=== PATIENT | female | born 1955 | race Caucasian/White ===

== ENCOUNTER 2018-06-09 07:47 | Outpatient (CLI) | payer MEDICARE, OTHER ==
[2018-06-09 11:42] LABS: BASOPHILS % (AUTO) 0.7 %; EOSINOPHILS # (AUTO) 0.1 10^3/uL (0.0-0.7); EOSINOPHILS % (AUTO) 2.4 %; LYMPHOCYTES # (AUTO) 1.5 10^3/uL (1.5-3.5); LYMPHOCYTES % (AUTO) 35.2 %; MEAN CORPUSCULAR HEMOGLOBIN 30.9 pg (27.0-31.0); MEAN CORPUSCULAR HGB CONC 33.7 g/dL (32.0-36.0); MEAN CORPUSCULAR VOLUME 91.7 fL (81.0-99.0); MEAN PLATELET VOLUME 9.1 fL (7.9-10.8); MONOCYTES # (AUTO) 0.3 10^3/uL (0.0-1.0); MONOCYTES % (AUTO) 7.1 %; NEUTROPHILS # (AUTO) 2.3 10^3/uL (1.5-6.6); NEUTROPHILS % (AUTO) 54.6 %; PLT - PLATELET COUNT 182 10^3/uL (130-450); RED BLOOD COUNT 4.54 10^6/uL (4.20-5.40); RED CELL DISTRIBUTION WIDTH 14.1 % (12.0-15.0); WHITE BLOOD COUNT 4.2 x10^3/uL (4.8-10.8)
[2018-06-09 11:59] LABS: ALBUMIN 4.3 g/dL (3.2-5.5); ALBUMIN/GLOBULIN RATIO 1.4 (1.0-2.2); ALKALINE PHOSPHATASE 51 IU/L (42-121); ALT ALANINE AMINOTRANSFERASE 13 IU/L (10-60); AST ASPARTATE AMINOTRANSFERASE 19 IU/L (10-42); BUN - BLOOD UREA NITROGEN 14 mg/dL (6-20); CALCIUM 9.3 mg/dL (8.5-10.3); CARBON DIOXIDE - CO2 31 mmol/L (21-32); CHLORIDE 103 mmol/L (101-111); CHOL/HDL RATIO 4.3 (<4.4); CHOLESTEROL 268 mg/dL; CREATININE 0.7 mg/dL (0.4-1.0); GFR - MDRD 84 (>89); GLUCOSE 87 mg/dL (70-100); HDL CHOLESTEROL 62 mg/dL; LDL CHOLESTEROL,CALCULATED 183 mg/dL; SODIUM 137 mmol/L (135-145); TOTAL PROTEIN 7.4 g/dL (6.7-8.2); VLDL CHOLESTEROL 23 mg/dL
[2018-06-10 12:16] LABS: HEPATITIS C ANTIBODY NON-REACTIVE (NON-REACTIVE)
== END 2018-06-09 07:48 | disposition home or self-care (01) ==
LOC: LAB.F 07:47
PROVIDERS: ATTEND Internal Medicine
DX: Z00.8 Encounter for other general examination (principal); Z72.89 Other problems related to lifestyle; Z13.6 Encounter for screening for cardiovascular disorders; M19.90 Unspecified osteoarthritis, unspecified site
CPT/HCPCS: 36415; 80053; 80061; 83721; 85025; 86803

== ENCOUNTER 2018-07-11 15:23 | Outpatient (CLI) | payer MEDICARE, OTHER ==
--- NOTE | 2018-07-26 14:09 | Mammography Report ---
Reason: SCREENING MAMMOGRAM Procedure Date: 07/11/2018 Accession Number: [id number] / [id number] Procedure: NYDIA - Screening Mammo Dig Bilat CPT Code: FULL RESULT: EXAM: Screening Mammo Dig Bilat DATE: 07/11/2018 3:53 PM CLINICAL HISTORY: 63-year-old female with history of lump removal from the right breast, pathology results on this are unclear. TECHNIQUE: Bilateral CC and MLO views were obtained. COMPARISON: 08/16/2015, 10/09/2013, 10/06/2012, 04/14/2011. FINDINGS: The breasts demonstrate heterogeneously dense fibroglandular parenchyma bilaterally. No suspicious masses, clustered microcalcifications, or regions of architectural distortion are identified. IMPRESSION: Benign findings RECOMMENDATION: Routine annual screening unless otherwise clinically indicated. BIRADS CATEGORY 2: Benign findings STANDARD QUALIFYING STATEMENTS: 1. This examination was not reviewed with the aid of Computer-Aided Detection (CAD). 2. A negative or benign imaging report should not delay biopsy if clinically suspicious findings are present. Consider surgical consultation if warrented. More than 5% of cancers are not identified by imaging. 3. Dense breasts may obscure an underlying neoplasm. 4. This examination was reviewed without the aid of 3D breast imaging (tomosynthesis).
== END 2018-07-11 15:24 | disposition home or self-care (01) ==
LOC: DI 15:23
PROVIDERS: ATTEND Internal Medicine
DX: Z12.31 Encounter for screening mammogram for malignant neoplasm of breast (principal)
CPT/HCPCS: 77067

== ENCOUNTER 2018-07-25 08:12 | Outpatient (CLI) | payer MEDICARE, OTHER ==
--- NOTE | 2018-07-25 15:30 | DEXA Report ---
Reason: POSTMENOPAUSAL Procedure Date: 07/25/2018 Accession Number: [id number] / [id number] Procedure: DEX - Dexa Spine and/or Hip CPT Code: FULL RESULT: EXAM: Dexa Spine and/or Hip DATE: 07/25/2018 8:42 AM CLINICAL HISTORY: POSTMENOPAUSAL TECHNIQUE: Dual energy x-ray absorptiometry (DXA) was performed on a [employer] System. Regions measured are the AP Spine, femoral neck, and if needed forearm. COMPARISON: None. In accordance with the International Society for Clinical Densitometry (ISCD) guidelines, data from previous exams may be reanalyzed using current recommendations and techniques. This is done to allow a more accurate basis for comparison with the current study. FINDINGS: The data for the lumbar spine is as follows: BMD (g/cm/cm) T-SCORE Z-SCORE REGION L1 0.926 -1.7 -0.2 L2 0.958 -2.0 -0.5 L3 1.093 -0.9 0.6 L4 1.065 -1.1 0.4 TOTAL 1.022 -1.3 0.2 NOTE: All evaluable vertebrae are used for classification The data for the hip is as follows: BMD (g/cm/cm) T-SCORE Z-SCORE REGION Neck 0.798 -1.7 -0.3 TOTAL 0.881 -1.0 0.1 NOTE: The femoral neck or total proximal femur, whichever is lowest, is used for classification. IMPRESSION: THE WHO CLASSIFICATION BASED ON THE INTERNATIONAL REFERENCE STANDARD IS OSTEOPENIA. THE FRACTURE RISK IS INCREASED. RECOMMENDATION: Patients with diagnosis of osteoporosis or osteopenia should have regular bone mineral density assessment. For those eligible for Medicare, routine testing is allowed once every 2 years. Testing frequency can be increased for patients who have rapidly progressing disease or for those who are receiving medical therapy to restore bone mass. COMMENT: World Health Organization (WHO) definitions for osteoporosis and osteopenia: NORMAL BMD: T-score at -1.0 or higher, fracture risk is low OSTEOPENIA BMD: T-score between -1.0 and -2.5, fracture risk is increased. OSTEOPOROSIS BMD: T-score at -2.5 or lower, fracture risk is high. National Osteoporosis Foundation recommends: 1. Obtain adequate dietary calcium (at least 1200 mg per day) and vitamin D (400-800 international units per day). 2. Participate, as appropriate, in regular weightbearing and muscle-strengthening exercise. 3. Avoid tobacco use and reduce alcohol and caffeine intake. 4. For more detailed information see the website at www.NOF.org.
== END 2018-07-25 08:13 | disposition home or self-care (01) ==
LOC: DI 08:12
PROVIDERS: ATTEND Internal Medicine
DX: Z00.8 Encounter for other general examination (principal); M85.89 Other specified disorders of bone density and structure, multiple sites; Z78.0 Asymptomatic menopausal state
CPT/HCPCS: 77080

== ENCOUNTER 2020-06-12 07:41 | Outpatient (CLI) | payer MEDICARE, OTHER ==
[2020-06-12 11:44] LABS: BASOPHILS % (AUTO) 0.8 %; EOSINOPHILS # (AUTO) 0.1 10^3/uL (0.0-0.7); EOSINOPHILS % (AUTO) 3.1 %; HGB - HEMOGLOBIN 12.8 g/dL (12.0-16.0); LYMPHOCYTES # (AUTO) 1.4 10^3/uL (1.5-3.5); LYMPHOCYTES % (AUTO) 34.4 %; MEAN CORPUSCULAR HEMOGLOBIN 29.9 pg (27.0-31.0); MEAN CORPUSCULAR HGB CONC 31.2 g/dL (32.0-36.0); MEAN CORPUSCULAR VOLUME 95.8 fL (81.0-99.0); MONOCYTES # (AUTO) 0.4 10^3/uL (0.0-1.0); MONOCYTES % (AUTO) 8.9 %; NEUTROPHILS # (AUTO) 2.1 10^3/uL (1.5-6.6); NEUTROPHILS % (AUTO) 52.5 %; PLT - PLATELET COUNT 184 10^3/uL (130-450); RED BLOOD COUNT 4.28 10^6/uL (4.20-5.40); RED CELL DISTRIBUTION WIDTH 13.3 % (12.0-15.0); WHITE BLOOD COUNT 3.9 x10^3/uL (4.8-10.8)
[2020-06-12 11:48] LABS: ALBUMIN 4.2 g/dL (3.2-5.5); ALBUMIN/GLOBULIN RATIO 1.6 (1.0-2.2); ALKALINE PHOSPHATASE 50 IU/L (42-121); ALT ALANINE AMINOTRANSFERASE 15 IU/L (10-60); AST ASPARTATE AMINOTRANSFERASE 21 IU/L (10-42); BILIRUBIN,TOTAL 0.9 mg/dL (0.2-1.0); BUN - BLOOD UREA NITROGEN 16 mg/dL (6-20); CALCIUM 9.2 mg/dL (8.5-10.3); CARBON DIOXIDE - CO2 30 mmol/L (21-32); CHLORIDE 107 mmol/L (101-111); CHOL/HDL RATIO 4.2 (<4.4); CHOLESTEROL 245 mg/dL; CREATININE 0.8 mg/dL (0.4-1.0); GLUCOSE 88 mg/dL (70-100); HDL CHOLESTEROL 58 mg/dL; LDL CHOLESTEROL,CALCULATED 165 mg/dL; LDL/HDL RATIO 2.8 (<4.4); SODIUM 142 mmol/L (135-145); TOTAL PROTEIN 6.8 g/dL (6.7-8.2); VLDL CHOLESTEROL 22 mg/dL
== END 2020-06-12 23:59 | disposition home or self-care (01) ==
LOC: LAB.WCP 07:41
PROVIDERS: ATTEND Family Medicine
DX: G25.81 Restless legs syndrome (principal); E78.5 Hyperlipidemia, unspecified; M85.80 Other specified disorders of bone density and structure, unspecified site; Z78.0 Asymptomatic menopausal state
CPT/HCPCS: 36415; 80053; 80061; 83721; 84443; 85025

== ENCOUNTER 2020-06-19 08:12 | Outpatient (CLI) | payer MEDICARE, OTHER ==
--- NOTE | 2020-06-20 07:29 | Mammography Report ---
BILATERAL DIGITAL SCREENING MAMMOGRAM 3D/2D: 06/19/2020 CLINICAL: Routine screening. Comparison is made to exams dated: 08/16/2015 mammogram and 07/11/2018 mammogram - [facility]. The tissue of both breasts is heterogeneously dense. This may lower the sensitivity of m ammography. No significant masses, calcifications, or other findings are seen in either breast. There has been no significant interval change. IMPRESSION: NEGATIVE There is no mammographic evidence of malignancy. A 1 year screening mammogram is recommended. This exam was interpreted at Station ID: [id number]. NOTE: For mammograms, a report in lay terms will be sent to the patient. Approximately 15% of breast malignancies will not be visualized mammographically. In the management of a palpable breast mass, a negative mammogram must not discourage biopsy of a clinically suspicious lesion. Electronically Signed By: Edd Cho M.D. ddp/penrad:06/19/2020 13:49:46 ACR BI-RADS Category 1: Negative 3341F PARENCHYMAL PATTERN: (D) - The breast(s) demonstrate(s) heterogeneously dense fibroglandular nick ventura. BI-RADS CATEGORY: (1) - 1 RECOMMENDATION: (ANNUAL) - Recommend routine annual screening mammography. [id number] 1 year screening LATERALITY: (B)
== END 2020-06-19 08:13 | disposition home or self-care (01) ==
LOC: DI.N 08:12
DX: Z12.31 Encounter for screening mammogram for malignant neoplasm of breast (principal); R07.89 Other chest pain
CPT/HCPCS: 71046; 77063; 77067

== ENCOUNTER 2020-06-19 12:59 | Outpatient (CLI) | payer MEDICARE, OTHER ==
--- NOTE | 2020-06-19 13:02 | XRAY Report ---
PROCEDURE: Chest 2 View X-Ray INDICATIONS: CHEST PRESSURE TECHNIQUE: 2 view(s) of the chest. COMPARISON: None. FINDINGS: Surgical changes and devices: None. Lungs and pleura: No pleural effusions or pneumothorax. Lungs are mildly abnormal with what appears to be mild pulmonary hyperexpansion. Mediastinum: Mediastinal contours are normal. Heart size is normal. Bones and chest wall: No suspicious bony abnormalities. Soft tissues appear unremarkable. IMPRESSION: Mild pulmonary hyperexpansion, however a very aggressive inspiratory effort can produce such an appearance in a patient without COPD. A definite source of chest pressure is not found. Reviewed by: Wiley Barrera MD on 06/19/2020 1:00 PM PDT Approved by: Wiley Barrera MD on 06/19/2020 1:00 PM PDT Station ID: [id number]
== END 2020-06-19 23:59 | disposition home or self-care (01) ==
LOC: DI.WCP 12:59
PROVIDERS: ATTEND Family Medicine
DX: R07.89 Other chest pain (principal)
CPT/HCPCS: 71046

== ENCOUNTER 2020-07-10 13:06 | Outpatient (CLI) | payer MEDICARE, OTHER | END 2020-07-10 13:07 | disposition home or self-care (01) | LOC: COV 13:06 | PROVIDERS: ATTEND Family Medicine | DX: R50.9 Fever, unspecified (principal); R05 Cough; R53.83 Other fatigue; R09.81 Nasal congestion; R11.2 Nausea with vomiting, unspecified; Z20.828 Contact with and (suspected) exposure to other viral communicable diseases ==

== ENCOUNTER 2021-07-30 11:04 | Outpatient (CLI) | payer MEDICARE, OTHER ==
[2021-07-30 15:09] LABS: BASOPHILS % (AUTO) 0.5 %; EOSINOPHILS # (AUTO) 0.1 10^3/uL (0.0-0.7); EOSINOPHILS % (AUTO) 2.5 %; HCT - HEMATOCRIT 42.4 % (37.0-47.0); HGB - HEMOGLOBIN 13.5 g/dL (12.0-16.0); LYMPHOCYTES # (AUTO) 1.5 10^3/uL (1.5-3.5); LYMPHOCYTES % (AUTO) 37.9 %; MEAN CORPUSCULAR HEMOGLOBIN 30.1 pg (27.0-31.0); MEAN CORPUSCULAR HGB CONC 31.8 g/dL (32.0-36.0); MEAN CORPUSCULAR VOLUME 94.4 fL (81.0-99.0); MEAN PLATELET VOLUME 11.2 fL (7.9-10.8); MONOCYTES # (AUTO) 0.3 10^3/uL (0.0-1.0); MONOCYTES % (AUTO) 6.4 %; NEUTROPHILS # (AUTO) 2.1 10^3/uL (1.5-6.6); NEUTROPHILS % (AUTO) 52.5 %; PLT - PLATELET COUNT 174 10^3/uL (130-450); RED BLOOD COUNT 4.49 10^6/uL (4.20-5.40); RED CELL DISTRIBUTION WIDTH 13.2 % (12.0-15.0); WHITE BLOOD COUNT 4.1 x10^3/uL (4.8-10.8)
[2021-07-30 15:36] LABS: ALBUMIN 4.2 g/dL (3.2-5.5); ALBUMIN/GLOBULIN RATIO 1.4 (1.0-2.2); ALKALINE PHOSPHATASE 53 IU/L (42-121); ALT ALANINE AMINOTRANSFERASE 14 IU/L (10-60); AST ASPARTATE AMINOTRANSFERASE 20 IU/L (10-42); BILIRUBIN,TOTAL 0.9 mg/dL (0.2-1.0); BUN - BLOOD UREA NITROGEN 16 mg/dL (6-20); CALCIUM 9.5 mg/dL (8.5-10.3); CARBON DIOXIDE - CO2 29 mmol/L (21-32); CHLORIDE 104 mmol/L (101-111); CHOL/HDL RATIO 5.4 (<4.4); CHOLESTEROL 309 mg/dL; CREATININE 0.8 mg/dL (0.4-1.0); GFR - MDRD 71 (>89); GLUCOSE 92 mg/dL (70-100); HDL CHOLESTEROL 57 mg/dL; LDL CHOLESTEROL,CALCULATED 213 mg/dL; LDL/HDL RATIO 3.7 (<4.4); POTASSIUM 3.9 mmol/L (3.5-5.0); SODIUM 141 mmol/L (135-145); TOTAL PROTEIN 7.1 g/dL (6.7-8.2); TRIGLYCERIDES 194 mg/dL; VLDL CHOLESTEROL 39 mg/dL
[2021-07-30 15:42] LABS: THYROID STIMULATING HORMONE 2.14 uIU/mL (0.34-5.60)
== END 2021-07-30 11:05 | disposition home or self-care (01) ==
LOC: LAB.S 11:04
PROVIDERS: ATTEND Family Medicine
DX: Z00.00 Encounter for general adult medical examination without abnormal findings (principal); E78.5 Hyperlipidemia, unspecified
CPT/HCPCS: 36415; 80053; 80061; 83721; 84443; 85025

== ENCOUNTER 2021-09-11 07:36 | Outpatient (CLI) | payer MEDICARE, OTHER ==
--- NOTE | 2021-09-12 07:51 | Mammography Report ---
BILATERAL DIGITAL DIAGNOSTIC MAMMOGRAM 3D/2D: 09/11/2021 CLINICAL: Bilateral nipple pain. Comparison is made to exams dated: 06/19/2020 mammogram, 07/11/2018 mammogram, and 08/16/2015 mammogra m - [facility]. The tissue of both breasts is heterogeneously dense. This may lowe r the sensitivity of mammography. No significant masses, calcifications, or other findings are seen in either breast. IMPRESSION: INCOMPLETE: NEEDS ADDITIONAL IMAGING EVALUATION There is no abnormality seen in either breast to correspond with the area of clinical concern, nipple abnormality, and pain in the sub-areolar depth. An ultrasound is recommended for further evaluation and is scheduled to immediately follow this examination. There is no abnormality seen in either axilla to correspond with the area of clinical concern in axil lae. An ultrasound is recommended for further evaluation and is scheduled to immediately follow this examination. This exam was interpreted at Station ID: [id number]. NOTE: For mammograms, a report in lay terms will be sent to the patient. Approximately 15% of breast malignancies will not be visualized mammographically. In the management of a palpable breast mass, a negative mammogram must not discourage biopsy of a clinically suspicious lesion. Electronically Signed By: Azeem Barrow M.D. aty/:09/11/2021 09:00:37 ACR BI-RADS Category 0: Incomplete 3340F PARENCHYMAL PATTERN: (D) - The breast(s) demonstrate(s) heterogeneously dense fibroglandular parenchy ma. BI-RADS CATEGORY: (0) - 0 Ultrasound [id number] Immediate follow-up LATERALITY: (B)
--- NOTE | 2021-09-12 07:52 | Ultrasound Report ---
LIMITED ULTRASOUND OF RIGHT BREAST AND AXILLA: 09/11/2021 CLINICAL: Bilateral nipple pain. Comparison is made to exams dated: 09/11/2021 mammogram, 06/19/2020 mammogram, 07/11/2018 mammogram, a nd 08/16/2015 mammogram - [facility]. Color flow and real-time ultrasound of the right breast retroareolar and axilla regions were performe d. Macias scale images of the real-time examination were reviewed. No significant abnormalities were seen sonographically in the right breast or the right axilla. IMPRESSION: NEGATIVE There is no sonographic evidence of malignancy. There is no abnormality seen in the right breast or in the right axilla to correspond with the area o f clinical concern and pain, however, recommend clinical follow up for persistent or worsening sympto ms, or development of any clinically suspicious findings. A 1 year screening mammogram is recommended. Findings and recommendations were conveyed to the patient during today's evaluation. This exam was interpreted at Station ID: [id number]. Electronically Signed By: Azeem Barrow M.D. aty/:09/11/2021 09:22:31 Ultrasound BI-RADS: 1 Negative BI-RADS CATEGORY: (1) - 1 RECOMMENDATION: (ANNUAL) - Recommend routine annual screening mammography. [id number] 1 year screening LATERALITY: (B)
--- NOTE | 2021-09-12 07:52 | Ultrasound Report ---
LIMITED ULTRASOUND OF LEFT BREAST AND AXILLA: 09/11/2021 CLINICAL: Bilateral nipple pain. Comparison is made to exams dated: 09/11/2021 mammogram, 06/19/2020 mammogram, 07/11/2018 mammogram, a nd 08/16/2015 mammogram - [facility]. Color flow and real-time ultrasound of the left breast retroareolar and axilla regions were performe d. Macias scale images of the real-time examination were reviewed. No significant abnormalities were seen sonographically in the left breast or the left axilla. IMPRESSION: NEGATIVE There is no sonographic evidence of malignancy. There is no abnormality seen in the left breast or in the left axilla to correspond with the area of clinical concern, however, recommend clinical follow up for persistent or worsening symptoms, or deve lopment of any clinically suspicious findings. A 1 year screening mammogram is recommended. Findings and recommendations were conveyed to the patient during today's evaluation. This exam was interpreted at Station ID: [id number]. Electronically Signed By: Azeem Barrow M.D. aty/:09/11/2021 09:23:33 Ultrasound BI-RADS: 1 Negative BI-RADS CATEGORY: (1) - 1 RECOMMENDATION: (ANNUAL) - Recommend routine annual screening mammography. [id number] 1 year screening LATERALITY: (B)
== END 2021-09-11 07:37 | disposition home or self-care (01) ==
LOC: DI 07:36
PROVIDERS: ATTEND Family Medicine
DX: N64.59 Other signs and symptoms in breast (principal)

== ENCOUNTER 2022-04-13 16:51 | Outpatient (CLI) | payer MEDICARE, OTHER ==
--- NOTE | 2022-04-14 11:37 | XRAY Report ---
PROCEDURE: Lumbar Spine Complete INDICATIONS: SI JOINT PX TECHNIQUE: 5 views of the lumbar spine were acquired. COMPARISON: None. FINDINGS: Bones: 5 [id number] vertebrae are present. There is normal bony alignment. No vertebral body compression fractures. No suspicious bony lesions. There is intervertebral disc space narrowing and endplate sclerosis at L4-5 and L5-S1. Facet sclerosis is present throughout the lumbar spine. Obliqu e views demonstrate intact pars interarticularis. Soft tissues: Overlying bowel gas pattern is normal. No suspicious soft tissue calcifications. IMPRESSION: Degenerative change. No compression deformities. No pars interarticularis defects. Reviewed by: Libia Wallace MD on 04/14/2022 11:36 AM PDT Approved by: Libia Wallace MD on 04/14/2022 11:36 AM PDT Station ID: [id number]
--- NOTE | 2022-04-14 13:12 | XRAY Report ---
PROCEDURE: Hip w/Pelvis 1V LT INDICATIONS: L HIP PX TECHNIQUE: AP pelvis with lateral view(s) of the left hip(s). COMPARISON: None. FINDINGS: Bones: No fractures or dislocations. Pelvic ring appears intact. No suspicious bony lesions. Ther e is mild left hip joint space narrowing. Soft tissues: The visualized bowel gas pattern is normal. No suspicious soft tissue calcifications. IMPRESSION: Mild left hip joint space narrowing consistent with mild osteoarthritis. Reviewed by: Libia Wallace MD on 04/14/2022 1:10 PM PDT Approved by: Libia Wallace MD on 04/14/2022 1:10 PM PDT Station ID: [id number]
== END 2022-04-13 16:52 | disposition home or self-care (01) ==
LOC: DI.N 16:51
PROVIDERS: ATTEND Nurse Practitioner
DX: M47.816 Spondylosis without myelopathy or radiculopathy, lumbar region (principal); M47.817 Spondylosis without myelopathy or radiculopathy, lumbosacral region; M25.852 Other specified joint disorders, left hip

== ENCOUNTER 2022-12-21 09:08 | Outpatient (CLI) | payer MEDICARE, OTHER ==
--- NOTE | 2022-12-22 10:52 | Mammography Report ---
BILATERAL DIGITAL SCREENING MAMMOGRAM 3D/2D: 12/21/2022 CLINICAL: Routine screening. Comparison is made to exams dated: 09/11/2021 mammogram, 06/19/2020 mammogram, 07/11/2018 mammogram, a nd 08/16/2015 mammogram - [facility]. Both breasts are heterogeneously dense, which may obscure small masses (category c / 51-75% glandular tissue). No significant masses, calcifications, or other findings are seen in either breast. There has been no significant interval change. IMPRESSION: NEGATIVE There is no mammographic evidence of malignancy. A 1 year screening mammogram is recommended. Based on the Tyrer Cuzick model (a risk assessment model) the patients lifetime risk is 4.8% and her 10 year risk is 2.8%. According to the ACR, ACS, and NCCN guidelines, an annual breast MRI exam marcos g with mammogram is recommended if the patients lifetime risk is 20% or greater. This exam was interpreted at Station ID: [id number]. NOTE: For mammograms, a report in lay terms will be sent to the patient. Approximately 15% of breast malignancies will not be visualized mammographically. In the management of a palpable breast mass, a negative mammogram must not discourage biopsy of a clinically suspicious lesion. Electronically Signed By: Godwin guerrero/adina:12/21/2022 10:15:52 letter sent: No_Letter ACR BI-RADS Category 1: Negative 3341F PARENCHYMAL PATTERN: (D) - The breast(s) demonstrate(s) heterogeneously dense fibroglandular nick ventura. BI-RADS CATEGORY: (1) - 1 RECOMMENDATION: (ANNUAL) - Recommend routine annual screening mammography. [id number] 1 year screening LATERALITY: (B)
== END 2022-12-21 09:09 | disposition home or self-care (01) ==
LOC: DI 09:08
DX: Z12.31 Encounter for screening mammogram for malignant neoplasm of breast (principal)

== ENCOUNTER 2022-12-21 10:50 | Outpatient (CLI) | payer MEDICARE, OTHER ==
[2022-12-21 11:53] LABS: BASOPHILS # (AUTO) 0.1 10^3/uL (0.0-0.1); BASOPHILS % (AUTO) 1.1 %; EOSINOPHILS # (AUTO) 0.1 10^3/uL (0.0-0.7); EOSINOPHILS % (AUTO) 2.9 %; HCT - HEMATOCRIT 43.7 % (37.0-47.0); HGB - HEMOGLOBIN 14.5 g/dL (12.0-16.0); LYMPHOCYTES # (AUTO) 1.6 10^3/uL (1.5-3.5); LYMPHOCYTES % (AUTO) 36.7 %; MEAN CORPUSCULAR HEMOGLOBIN 31.2 pg (27.0-31.0); MEAN CORPUSCULAR HGB CONC 33.2 g/dL (32.0-36.0); MEAN PLATELET VOLUME 11.2 fL (7.9-10.8); MONOCYTES # (AUTO) 0.3 10^3/uL (0.0-1.0); MONOCYTES % (AUTO) 7.4 %; NEUTROPHILS # (AUTO) 2.3 10^3/uL (1.5-6.6); NEUTROPHILS % (AUTO) 51.7 %; PLT - PLATELET COUNT 221 10^3/uL (130-450); RED BLOOD COUNT 4.65 10^6/uL (4.20-5.40); RED CELL DISTRIBUTION WIDTH 13.2 % (12.0-15.0); WHITE BLOOD COUNT 4.4 x10^3/uL (4.8-10.8)
[2022-12-21 12:05] LABS: ALBUMIN 4.2 g/dL (3.2-5.5); ALBUMIN/GLOBULIN RATIO 1.4 (1.0-2.2); ALKALINE PHOSPHATASE 59 IU/L (42-121); ALT ALANINE AMINOTRANSFERASE 15 IU/L (10-60); AST ASPARTATE AMINOTRANSFERASE 20 IU/L (10-42); BILIRUBIN,TOTAL 0.6 mg/dL (0.2-1.0); BUN - BLOOD UREA NITROGEN 16 mg/dL (6-20); CALCIUM 9.4 mg/dL (8.5-10.3); CARBON DIOXIDE - CO2 29 mmol/L (21-32); CHLORIDE 102 mmol/L (101-111); CHOLESTEROL 255 mg/dL; CREATININE 0.8 mg/dL (0.4-1.0); GFR - MDRD 71 (>89); GLUCOSE 93 mg/dL (70-100); HDL CHOLESTEROL 51 mg/dL; LDL CHOLESTEROL,CALCULATED 174 mg/dL; LDL/HDL RATIO 3.4 (<4.4); POTASSIUM 3.9 mmol/L (3.5-5.0); SODIUM 137 mmol/L (135-145); TOTAL PROTEIN 7.3 g/dL (6.7-8.2); TRIGLYCERIDES 152 mg/dL; VLDL CHOLESTEROL 30 mg/dL
[2022-12-21 12:17] LABS: THYROID STIMULATING HORMONE 2.81 uIU/mL (0.34-5.60)
== END 2022-12-21 10:51 | disposition home or self-care (01) ==
LOC: LAB 10:50
PROVIDERS: ATTEND Family Medicine
DX: E78.5 Hyperlipidemia, unspecified (principal); M19.90 Unspecified osteoarthritis, unspecified site
CPT/HCPCS: 36415; 80053; 80061; 83721; 84443; 85025

== ENCOUNTER 2023-02-19 12:44 | Emergency (ER) | payer MEDICARE, OTHER ==
[2023-02-19 13:11] LABS: BASOPHILS % (AUTO) 0.3 %; EOSINOPHILS # (AUTO) 0.1 10^3/uL (0.0-0.7); EOSINOPHILS % (AUTO) 1.5 %; HCT - HEMATOCRIT 40.5 % (37.0-47.0); HGB - HEMOGLOBIN 13.3 g/dL (12.0-16.0); LYMPHOCYTES # (AUTO) 1.6 10^3/uL (1.5-3.5); LYMPHOCYTES % (AUTO) 20.8 %; MEAN CORPUSCULAR HEMOGLOBIN 30.4 pg (27.0-31.0); MEAN CORPUSCULAR HGB CONC 32.8 g/dL (32.0-36.0); MEAN CORPUSCULAR VOLUME 92.5 fL (81.0-99.0); MEAN PLATELET VOLUME 10.1 fL (7.9-10.8); MONOCYTES # (AUTO) 0.5 10^3/uL (0.0-1.0); MONOCYTES % (AUTO) 6.2 %; NEUTROPHILS # (AUTO) 5.4 10^3/uL (1.5-6.6); NEUTROPHILS % (AUTO) 70.9 %; PLT - PLATELET COUNT 175 10^3/uL (130-450); RED BLOOD COUNT 4.38 10^6/uL (4.20-5.40); RED CELL DISTRIBUTION WIDTH 13.3 % (12.0-15.0); WHITE BLOOD COUNT 7.6 x10^3/uL (4.8-10.8)
[2023-02-19 13:23] LABS: ALBUMIN 4.4 g/dL (3.2-5.5); ALBUMIN/GLOBULIN RATIO 1.5 (1.0-2.2); BILIRUBIN,TOTAL 1.2 mg/dL (0.2-1.0); CALCIUM 9.5 mg/dL (8.5-10.3); CREATININE 0.7 mg/dL (0.4-1.0); POTASSIUM 3.7 mmol/L (3.5-5.0); TOTAL PROTEIN 7.4 g/dL (6.7-8.2)
--- NOTE | 2023-02-19 13:26 | XRAY Report ---
PROCEDURE: Chest 1 View X-Ray INDICATIONS: Chest pain TECHNIQUE: One view of the chest was acquired. COMPARISON: 06/19/2020 FINDINGS: Surgical changes and devices: None. Lungs and pleura: No pleural effusions or pneumothorax. Lungs are clear. Mediastinum: Mediastinal contours appear normal. Heart size is normal. Bones and chest wall: No suspicious bony lesions. Overlying soft tissues appear unremarkable. IMPRESSION: No acute cardiopulmonary process. No focal consolidation. Reviewed by: Azeem Barrow MD on 02/19/2023 1:25 PM PDT Approved by: Azeem Barrow MD on 02/19/2023 1:25 PM PDT Station ID: [id number]
--- NOTE | 2023-02-19 14:06 | ED Physician Documentation ---
History of Present Illness - Stated complaint Stated Complaint: CHEST PX,CHOKING - Chief complaint Chief Complaint: Cardiac - Additonal information Additional information: 67-year-old female who reports that she is in otherwise good health presents the emergency department for evaluation of chest pressure that she noticed last night. It was constant nonradiating. No diaphoresis or nausea. Not worse with exertion. No shortness of air or cough. Shortly thereafter she also began to feel a sensation of choking when swallowing. She reported similar this morning after eating yogurt and granola. She had no slurred speech, facial droop arm or leg weakness. Patient has no history of hypertension. No tobacco use. Drinks on average of 6-7 drinks a week. No history of diabetes. Takes no prescribed medications. Review of Systems Constitutional: denies: Fever, Chills Cardiac: reports: Chest pain / pressure Respiratory: reports: Reviewed and negative GI: reports: Reviewed and negative : reports: Reviewed and negative Skin: reports: Reviewed and negative Neurologic: reports: Reviewed and negative PD PAST MEDICAL HISTORY - Past Surgical History /BUILDING ATTENDANT: Tubal ligation - Allergies Allergies/Adverse Reactions: Allergies Allergy/AdvReac Type Severity Reaction Status Date / Time No Known Drug Allergies Allergy Unverified 02/19/23 12:59 - Social History Does the pt smoke?: No Smoking Status: Never smoker Does the pt drink ETOH?: Yes Does the pt have substance abuse?: No - Immunizations Immunizations are current?: No Immunizations: TDAP >10years/unknown - POLST Patient has POLST: No PD ED PE NORMAL - General General: Alert and oriented X 3, No acute distress - HEENT HEENT: Atraumatic, Pharynx benign - Neck Neck: Supple, no meningeal sign, No adenopathy - Cardiac Cardiac: RRR, No murmur - Respiratory Respiratory: No respiratory distress, Clear bilaterally - Abdomen Abdomen: Normal bowel sounds, Soft - Derm Derm: Normal color, Warm and dry, No rash - Extremities Extremities: No deformity - Neuro Neuro: Alert and oriented X 3, 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 Relevant findings are: Rate: Rate (enter#) (61) Rhythm: NSR Garrison: Normal Intervals: Normal WA. No: Prolonged QT QRS: Low voltage Ischemia: Q waves (v1-v2) Compare to prior EKG: Old EKG unavailable Computer interpretation: Agree with computer - Labs Labs: Laboratory Tests 02/19/23 02/19/23 02/19/23 13:07 13:07 13:07 WBC 7.6 RBC 4.38 Hgb 13.3 Hct 40.5 MCV 92.5 MCH 30.4 MCHC 32.8 RDW 13.3 Plt Count 175 MPV 10.1 Neut # (Auto) 5.4 Lymph # (Auto) 1.6 [place] # (Auto) 0.5 Eos # (Auto) 0.1 Baso # (Auto) 0.0 Absolute Nucleated RBC 0.00 Nucleated RBC % 0.0 Sodium 140 Potassium 3.7 Chloride 101 Carbon Dioxide 29 Anion Gap 10.0 BUN 13 Creatinine 0.7 Estimated GFR (MDRD) 83 L Glucose 101 H Calcium 9.5 Total Bilirubin 1.2 H AST 20 ALT 16 Alkaline Phosphatase 64 Troponin I High Sens 2.7 Total Protein 7.4 Albumin 4.4 Globulin 3.0 Albumin/Globulin Ratio 1.5 Lipase 33 - Rads (name of study) cxr Relevant Findings:: Final report received (No acute cardiopulmonary finding) PD Medical Decision Making - ED course Complexity details: reviewed results, re-evaluated patient, considered differential, d/w patient ED course: 67-year-old female who carries no history of hypertension, diabetes or tobacco use presents the emergency department for evaluation of nonexertional chest or that she noticed last night. Nonradiating no nausea or diaphoresis. Here in the emergency department an EKG was completed. There are some Q waves in the anterior lateral leads but there is no previous for comparison. No ST elevation to suggest STEMI. Chest x-ray was negative for findings of pneumothorax, pneumonia, pleural effusion or cardiomegaly. We did obtain a CBC and electrolytes. All essentially unremarkable. Single troponin was also negative. Given the duration of symptoms this is adequate to rule out acute MD. I discussed with patient that though otherwise healthy given age and any chest pain and chest pressure should be evaluated with a cardiac stress test as an outpatient. She will contact her PCP in order to obtain this referral. Patient has a heart score of 2 indicating low risk for Mace. Patient had also reported some difficulty swallowing feeling like she was choking. Clinically she has normal phonation. Clearly tolerating her oral secretions and does not have an esophageal impactionI did discuss with her multiple etiologies for this symptom which could include gastritis, esophagitis, Schatzki ring, soft tissue mass or narrowing within the esophagus. I have made the recommendation to try a week or 2 of an [id number]-ffq-[id number] PPI. If not markedly better then consider referral for an EGD for further evaluation of painful swallow. The usual emergent return precautions to the ER were otherwise discussed. Patient was discharged in stable condition Departure - Departure Disposition: 01 Home, Self Care Clinical Impression: Chest pressure Swallowing difficulty Qualifiers: Dysphagia type: unspecified Qualified Code(s): R13.10 - Dysphagia, unspecified Condition: Stable Record reviewed to determine appropriate education?: Yes Follow-Up: Yunier Pang MD [Primary Care Provider] - Comments: Chelsey you came to the emergency department today because since last night you have had some chest pressure. You have also reported difficulty with swallow ing. Your EKG today does not show signs of active heart attack. We did obtain a CBC, electrolytes and troponin. They were all essentially normal. Your chest x-ray is unremarkable. Though you are otherwise reasonably healthy, and anybody who is over the age of 60 or in menopause that develops chest pain and chest pressure, they should be evaluated with a stress test. Please discuss this ED visit with Dr. Bejarano and request referral for cardiac stress testing. Your difficulty swallowing and choking can be due to a myriad of concerns including silent acid reflux, esophagitis, soft tissue mass or narrowing within the esophagus. I do recommend that you use an zchv-bhi-svbnwbj acid medication for the next week or so. Anything like Prilosec should work. If you find that this does not improve your symptoms you may benefit from referral for an EGD to evaluate for esophagitis, Schatzki ring, narrowing or any other clinical condition that could contribute to choking episodes. Return to the ER if you have any other worsening symptoms, develop chest pain with exertion, find yourself suddenly short of air or out of breath.
[2023-02-19 14:23] VITALS: BP 128/78
== END 2023-02-19 14:22 | disposition home or self-care (01) ==
LOC: ED 12:44
DX: R07.89 Other chest pain (principal); R13.10 Dysphagia, unspecified
CPT/HCPCS: 36415; 80053; 83690; 84484; 85025; 93005; 99283; 99284

== ENCOUNTER 2023-04-06 07:40 | Outpatient (CLI) | payer MEDICARE, OTHER ==
--- NOTE | 2023-04-06 08:10 | CARDIAC PROCEDURE NOTE ---
Stress Test Report Service Date: 04/06/23 Service Time: 08:00 Ordering Provider: Cynthia Lopez CFNP Indication for Test: Assess episodic chest and throat tightness. Significant Medical History: Chelsey is referred for a stress echocardiogram today to assess episodes of chest and throat pressure. She reports experiencing a single major symptomatic episode that occurred while she was traveling back home from the [facility] in late January, with onset of constant, nonradiating mid chest discomfort, that became associated with a sensation of choking when swallowing. She was seen at the [facility] Emergency Department where high-sensitivity troponin was negative and EKG did not show signs of acute ischemia, though q waves were noted in the precordial leads. She has continued to experience occasional episodes of throat tightness that are random in occurrence and not especially exertional in nature. She has been followed by her primary care team and had a trial of antiacid medication that did not seem to change things. She remains active, hiking 35 times weekly on routes with significant hills, without experiencing these symptoms. She denies associated shortness of breath, lightheadedness or a significant decrease in her level of stamina. Cardiac Risk Factors: Positive for family history of coronary artery disease in both parents (father with fatal GA at age 68, mother with coronary bypass surgery in her 60s) as well as some aunts and uncles; positive for elevated cholesterol values (recent Total Cholesterol 255 with HDLc 51 and LDLc 174, not treated); negative for history of hypertension, diabetes or cigarette smoking ever. Type of Stress Test: ETT with Echocardiography Procedure: -Exercise Treadmill Test- After signing informed consent, the patient underwent echo imaging at rest and then performed treadmill exercise using a Lorenzo protocol. The patient exercised for 9 minutes 27 seconds and achieved a peak heart rate of 160 (105 percent predicted maximum heart rate for age), and an estimated workload of 10.9 METS. The test was terminated due to fatigue/shortness of breath. Resting heart rate: 79 Peak heart rate: 160 Normal response to exercise. Resting BP: 118/73 Peak BP: 230/73 Normal BP response to exercise. Rhythm during exercise: Sinus rhythm throughout, without ectopy. Symptoms: She denied experiencing any chest or throat tightness whatsoever. EKG at rest showed normal sinus rhythm with isoelectric ST segments, diffuse mild nonspecific T wave flattening, with qS pattern in leads V1,V2 and V3 with delayed precordial R/S transition at V4-V5. EKG at peak stress showed >1.[address] depression especially in lead V6 and less so in V5, meeting diagnostic EKG criteria for ischemia. In Recovery heart rate rapidly/normally returned to baseline and blood pressure was nearly back to baseline at 5 minutes (142/66). Echo imaging, performed at rest and with stress, will be reported separately. IObey MD, was present throughout this treadmill stress study and supervised it in its entirety. Summary: 1) Exercise tolerance markedly above average for age and sex as evidenced by EMILY of -58%. 2) Abnormal resting EKG. 3) Adequate level of exercise was achieved on this treadmill stress test. 4) Normal BP response to exercise. 5) Ischemic changes by EKG criteria were seen at peak stress, WITHOUT associated symptoms. 6) Echo image interpretation reveals normal left ventricular size, wall thickness and systolic function, with appropriate hyperdynamic augmentation of all segments with exercise, indicating no evidence of prior infarct or inducible ischemia. No significant valvular abnormality or elevation of estimated pulmonary artery systolic pressure seen on screening study. See separate report for more details. Conclusions and Recommendations: 1) Multiple favorable predictors were observed in this study, including an outstanding exercise time, robust increase in systolic blood pressure, no occurrence of index symptoms and rapid return of heart rate and blood pressure to the normal range post-exercise. 2) Although the resting EKG pattern could have been consistent with a prior anteroseptal infarct there did not appear to be evidence for this on resting echo images nor echo evidence of inducible ischemia. Thus we consider the ST depression on EKG is likely a false positive result. 3) I discussed with the patient that, given her age and significant family history of coronary disease in both parents, she would likely receive prognostic benefit from initiation of a statin to lower her cholesterol levels, especially since there do not appear to be other opportunities for risk factor reduction. I recommended that she discuss this further with her primary provider, Ms. Lopez.
== END 2023-04-06 07:41 | disposition home or self-care (01) ==
LOC: DI 07:40
PROVIDERS: ATTEND Nurse Practitioner Family
DX: R07.89 Other chest pain (principal); E78.00 Pure hypercholesterolemia, unspecified; Z82.49 Family history of ischemic heart disease and other diseases of the circulatory system
CPT/HCPCS: 93350

== ENCOUNTER 2023-09-21 11:22 | Day surgery (SDC) | payer MEDICARE, OTHER ==
[2023-09-21 11:39] VITALS: O2SAT 100
[2023-09-21] MEDS ORDERED: PROPOFOL 500 MG/50 ML 500 MG/50 ML VIAL ONE (11:43)
[2023-09-21] MEDS ORDERED: LACTATED RINGERS 1,000 ML IV ONE ×2 (11:47→12:44)
--- NOTE | 2023-09-21 11:49 | ANESTHESIA ---
Pre-Anesthesia VS, & Labs - Diagnosis hx colon polyps - Procedure colonoscopy Vital Signs: Temp Pulse Resp BP Pulse Ox O2 Flow Rate 36.5 C 58 L 14 133/77 H 100 09/21/23 11:36 09/21/23 11:36 09/21/23 11:36 09/21/23 11:36 09/21/23 11:36 Height: 5 ft 10 in Weight (kg): 67 kg Body Mass Index: 21.2 BMI Classification: Normal - NPO >8 hours - Is Patient ?: No - Lab Results Lab results reviewed: Yes Home Medications and Allergies Home Medications: Ambulatory Orders No Known Home Medications 09/20/23 No Known Home Medications 09/20/23 Allergies/Adverse Reactions: Allergies Allergy/AdvReac Type Severity Reaction Status Date / Time No Known Drug Allergies Allergy Unverified 02/19/23 12:59 Anes History & Medical History - Anesthetic History Anesthesia Complications: reports: No previous complications Family history of Anesthesia Complications: Denies Family history of Malignant Hyperthermia: Denies - Medical History Cardiovascular: reports: None Pulmonary: reports: None Gastrointestinal: reports: Colon polyps Urinary: reports: None Neuro: reports: None Musculoskeletal: reports: None Endocrine/Autoimmune: reports: None Skin: reports: None Smoking Status: Never smoker - Surgical History General: reports: Colonoscopy Gynecologic: reports: Tubal ligation Exam General: Alert, Oriented x3, Cooperative Dental: WNL Mouth Openin Fingerbreadth Neck Mobility: Normal Mallampati classification: II Thyromental Distance: 4-6 cm Respiratory: Lungs clear Cardiovascular: Regular rate Plan Anesthesia Type: Total IV Consent for Procedure(s) Verified and Reviewed: Yes Code Status: Attempt Resuscitation ASA classification: 1-Healthy patient Is this case an emergency?: No
--- NOTE | 2023-09-21 12:54 | ANESTHESIA POST OP EVALUATION ---
Anesthesia Post Eval - Post Anesthesia Eval Vitals: Last Vital Signs Temp 36.5 C 09/21/23 12:45 Pulse 73 09/21/23 12:45 Resp 17 09/21/23 12:45 BP 115/74 09/21/23 12:45 Pulse Ox 100 09/21/23 12:45 O2 Flow Rate CV Function Including HR & BP: Stable Pain Control: Satisfactory Nausea & Vomiting: Negative Mental Status: Baseline Respiratory Status: Airway Patent Hydration Status: Satisfactory Anesthesia Complications: None
[2023-09-21 13:35] VITALS: BP 122/65
== END 2023-09-21 11:23 | disposition home or self-care (01) ==
LOC: SDS 11:22
PROVIDERS: ATTEND Surgery
PROC: 0DBN8ZZ Excision of Sigmoid Colon, Via Natural or Artificial Opening Endoscopic (ICD-10-PCS; principal; 2023-09-21 13:00)
DX: Z12.11 Encounter for screening for malignant neoplasm of colon (principal); K63.5 Polyp of colon
CPT/HCPCS: 45385; J7120

== ENCOUNTER 2024-01-18 11:13 | Outpatient (CLI) | payer MEDICARE, OTHER ==
--- NOTE | 2024-01-18 20:43 | XRAY Report ---
PROCEDURE: Thoracic Spine 3V INDICATIONS: MUSCLE SPASM OF THORACIC BACK TECHNIQUE: 2 view(s) of the thoracic spine were acquired. COMPARISON: None FINDINGS: Bones: Vertebral body height and alignment maintained. No lytic or blastic intrinsic lesions. Soft tissues: Paravertebral soft tissues are unremarkable IMPRESSION: Unremarkable thoracic spine radiographs Reviewed by: Goyo Miller MD on 01/18/2024 7:42 PM AKDT Approved by: Goyo Miller MD on 01/18/2024 7:42 PM AKDT Station ID: [id number]
== END 2024-01-18 11:14 | disposition home or self-care (01) ==
LOC: DI 11:13
PROVIDERS: ATTEND Family Medicine
DX: M62.830 Muscle spasm of back (principal)

== ENCOUNTER 2024-01-26 10:08 | Outpatient (CLI) | payer MEDICARE, OTHER ==
--- NOTE | 2024-01-27 09:09 | Mammography Report ---
BILATERAL DIGITAL SCREENING MAMMOGRAM 3D/2D: 01/26/2024 CLINICAL: Routine screening. Comparison is made to exams dated: 12/21/2022 mammogram, 09/11/2021 mammogram, 06/19/2020 mammogram, mammogram, and 08/16/2015 mammogram - [facility]. Both breasts are heterogeneously dense, which may obscure small masses (category c / 51-75% glandular tissue). No significant masses, calcifications, or other findings are seen in either breast. There has been no significant interval change. IMPRESSION: NEGATIVE There is no mammographic evidence of malignancy. A 1 year screening mammogram is recommended. Based on the Tyrer Cuzick model (a risk assessment model) the patient's lifetime risk is 4.6% and her 10 year risk is 2.9%. According to the ACR, ACS, and NCCN guidelines, an annual breast MRI exam marcos g with mammogram is recommended if the patient's lifetime risk is 20% or greater. This exam was interpreted at Station ID: [id number]. NOTE: For mammograms, a report in lay terms will be sent to the patient. Approximately 15% of breast malignancies will not be visualized mammographically. In the management of a palpable breast mass, a negative mammogram must not discourage biopsy of a clinically suspicious lesion. Electronically Signed By: Cat duncan/adina:01/26/2024 15:12:15 letter sent: No_Letter ACR BI-RADS Category 1: Negative 3341F PARENCHYMAL PATTERN: (D) - The breast(s) demonstrate(s) heterogeneously dense fibroglandular nick ventura. BI-RADS CATEGORY: (1) - 1 RECOMMENDATION: (ANNUAL) - Recommend routine annual screening mammography. [id number] 1 year screening LATERALITY: (B)
== END 2024-01-26 10:09 | disposition home or self-care (01) ==
LOC: DI 10:08
DX: Z12.31 Encounter for screening mammogram for malignant neoplasm of breast (principal); R92.333 Mammographic heterogeneous density, bilateral breasts